=== PATIENT | male | born 1955 | race Caucasian/White ===

== ENCOUNTER 2017-06-09 05:46 | Day surgery (SDC) | payer OTHER ==
[~2017-06-09] VITALS: Ht 180.3 cm; Wt 94.3 kg
[2017-06-09] VITALS (12 sets, daily range): BP systolic 117–158; BP diastolic 61–97; PULSE 52–84; RESP 12–16; O2SAT 91–99
[~2017-06-09 05:46] MED LIST: ASPI-973 PO; CINN500C14 PO; CeFAZolin Inj 2 GM in IV Premix 1 EACH IV ONE; GLUC-120 PO; LEVO100T6 PO; MULTIV PO; SIMV40TA5 PO; testosterone
[2017-06-09] MEDS ORDERED: Propofol 10,000 mCg/mL 20 mL Inj ONE (05:47)
[2017-06-09] MEDS ORDERED: Rocuronium 10 mg/mL 5 mL Inj ONE (05:47)
[2017-06-09] MEDS ORDERED: fentaNYL-PF 50 mCg/mL 2 mL Inj ONE (05:47)
[2017-06-09] MEDS ORDERED: Ondansetron 2 mg/mL 2 mL Inj ONE (05:47)
[2017-06-09] MEDS ORDERED: Dexamethasone 4 mg/mL Inj ONE (05:47)
[2017-06-09] MEDS ORDERED: Succinylcholine Chloride 20 mg/mL 5 mL Inj ONE (05:47)
[2017-06-09] MEDS: Lactated Ringer's 1,000 ML IV SCH ×2 (06:00→07:33)
[2017-06-09] MEDS ORDERED: TEST100V4 IM (06:03)
[2017-06-09] MEDS ORDERED: CeFAZolin 2 Gm/50 mL D5W Duplex Bag IV ONE (06:04)
--- NOTE | 2017-06-09 06:37 | PCM.HPANE ---
Patient Data Surgeon Admitting Provider: Attending Provider:Ramiro Kline DO Primary Care Physician:Aleshia Dawn MD Other Provider:Adam Almodovar Anesthesia Reason for Visit Right Shoulder Rotator Cuff Tear Ht/WT & BMI Height (Feet): 5 Height (Inches): 11 Weight (Kilograms): 94.3 Body Mass Index 29.00 Allergies Uncoded Allergies: No Known Allergies (Allergy, Mild, 02/28/04) Past Anesthesia History Anesthesia History: Denies:: Abnormal Airway, Anesthesia Reactions, Difficult Intubation, Fam Anesthesia Reaction, Fam Malignant Hypertherm, Malignant Hyperthermia Diabetes History Hx Diabetes?: No MRSA MRSA: No Medications Blood Thinner: Aspirin Last Dose Blood Thinner: May 27, 2017 Home Meds Incl Beta Rayshawn: No Reported Medications Testosterone Cypionate 100 Mg/1 Ml Vial Im Bimonthly #10 06/09/17 [multiv] No Conflict Check1 Tab PO DAILY 06/03/17 Gluc 2Kcl/Chondr/Randy Hy/Hy AC (Glucosamine & Chondroitin Cap)1 Each Capsule1 Each PO DAILY 06/03/17 Cinnamon Bark (Cinnamon)500 Mg [id number] Mg PO DAILY 06/03/17 Simvastatin 40 Mg [id number] Mg PO HS 30 Days Ref 0 06/03/17 Levothyroxine 100 Mcg [id number] Mcg PO DAILY For Thyroid Replacement Ref 0 06/03/17 Aspirin 81 Mg [id number] Mg PO DAILY Ref 0 06/03/17 Discontinued Reported Medications [testosterone] No Conflict Check 06/03/17 History History of ENT Problems?: No HEENT History: Positive for:: Glaucoma (border line ) Denies:: Abnormal Airway Cataracts Difficult Intubation Dysphagia Hearing Problem Sinus Problem TMJ Denture Type: None Teeth Condition: Within Normal Limits Missing Teeth Hx of Heart Problems?: No Cardiovascular History: Denies:: Abdominal Aortic Aneurism Atrial Fibrillation Cardiac Surgery Chest Pain Congestive Heart Failure Coronary Artery Disease Edema Heart Murmur Hypertension Irregular Heartbeat Peripheral Vascular Rheumatic Fever Thrombophlebitis Valvular Heart Disease Hx of Respiratory Problem?: No Respiratory History: Denies:: Use of C-PAP Machine Hx Neurologic Problems?: No Neurological History: Denies:: Alzheimer's Disease CVA Dementia Dizziness Headaches Multiple Sclerosis Parkinson's Disease Seizures TIA Hx of GI Problems?: No Hx of Problems?: No Male Hx: Denies:: Prostate Problems Scrotal Mass Testicular Surgery Skin History: Denies:: History Skin Disorders? Hx Musculoskeletal Problems?: No Musculoskeletal History: Positive for:: Osteoarthritis Denies:: Back Injury Degenerative Joint Fibromyalgia Joint Replacement Musculoskeletal Trauma Myasthenia Gravis Rheumatoid Arthritis Systemic Lupus Hx of Psycho/Social Problems?: No Psycho Social History: Denies:: Anxiety Bipolar Disorder Hx Depression Hx Surgeries?: Yes Other History: Positive for:: Thyroid Disease (Hypothyroid - Levothyroxine) Denies:: Cancer Endocrine Disease History Blood Transfusions: Positive for:: Accept Blood Products? Denies:: Blood Transfusions Hx Diabetes: No Hx Alcohol Use: Yes (occassionally thursday)Hx Substance Use: No Stop/Bang S-Snoring: Do You Snore Loudly: No T-Tired: feel tired, fatigued: No O-Obsered: Observed not breath: No P-Blood Pressure: treated: No B- Body Mass Index > 35 kg/m2: No A- Age over 50: Yes N- Neck Large Circumference: No G- Gender Male: Yes BRYAN Total Score: 2 BRYAN Risk Assessment: Low Risk, <3 Yes Risk Assessment Category Category 1A: Patient has history of documented sleep apnea, and HAS NOT received any narcotic, sedative or anesthesia administration during this stay. Category 1B: Patient has history of documented sleep apnea, and HAS received any narcotic , sedative or anesthesia administration during this stay Category 2: Patient has SUSPECTED Obstructive Sleep Apnea, and HAS received any narcotic , sedative or anesthesia administration during this stay. Category 3: Patient has SUSPECTED Obstructive Sleep Apnea and HAS NOT received narcotic, sedative or anesthesia administration during this stay. Category 4: Outpatient in Procedural Areas with known sleep apnea or who screen positive for High Risk via the STOP/BANG questionnaire. Exam Exam Vital Signs Vital Signs Date Time Temp Pulse Resp B/P Pulse Ox O2 Delivery O2 Flow Rate FiO2 06/09/17 06:10 36.0 52 16 147/85 95 Room Air General Appearance: Alert, Oriented X3, Cooperative, No Acute Distress HEENT/AIRWAY: MP 2 Lungs: Clear to Auscultation, Normal Air Movement Heart: Exam Unremarkable, Regular Rate/Rhythm, No Murmurs/Rubs/Gallops Meds/Labs/Diagnostics Admission Meds Current Medications Lactated Ringer's (Lr) 1,000 ml @ 120 mls/hr Q8H20M IV Last administered on t 06:00; Start 06/09/17 at 05:00; Stop 06/09/17 at 13:19 Plan Impression Patient chart reviewed, patient interviewed and anesthestic plan with risks, benefits, and alternatives discussed, and informed consent obtained. NPO per Anesth. Guidelines: Yes ASA Physical Status: ASA2 Mod Systemic Disease Anesthetic Plan: GA, Regional Block Bene/Risks/Altern/Consents: Yes HP Complete Prior to Induction: Yes Hussein Parekh MD Jun 09, 2017 06:37
[2017-06-09] MEDS ORDERED: Lidocaine 1%-Epi 1:100,000 20 mL Inj INFILTRATE ONE (07:35)
[2017-06-09] MEDS ORDERED: Atropine 0.4 mg/mL Inj IVPUSH PRN (08:20)
[2017-06-09] MEDS ORDERED: Phenylephrine 10,000 mCg/mL Inj IVPUSH PRN (08:20)
[2017-06-09] MEDS ORDERED: MetoCLOpramide 5 mg/mL 2 mL Inj IVPUSH PRN (08:20)
[2017-06-09] MEDS ORDERED: EPHEDrine Sulfate 50 mg/mL Inj IVPUSH PRN (08:20)
[2017-06-09] MEDS ORDERED: HYDROmorphone 1 mg/mL Inj IVPUSH PRN (08:20)
[2017-06-09] MEDS ORDERED: fentaNYL-PF 50 mCg/mL 2 mL Inj IVPUSH PRN (08:20)
[2017-06-09] MEDS ORDERED: Dexamethasone 4 mg/mL Inj IVPUSH PRN (08:20)
[2017-06-09] MEDS ORDERED: Ondansetron 2 mg/mL 2 mL Inj IVPUSH PRN (08:20)
[2017-06-09] MEDS ORDERED: Labetalol 5 mg/mL 4 mL Inj IV PRN (08:20)
[2017-06-09] MEDS ORDERED: Lactated Ringer's 500 ML IV PRN (08:20)
[2017-06-09] MEDS ORDERED: Lactated Ringer's 1,000 ML IV SCH (08:20)
[2017-06-09] MEDS ORDERED: Ropivacaine-PF 0.5% 30 mL Inj INFILTRATE ONE (10:21)
[2017-06-09] MEDS ORDERED: oxyCODONE-Acetamin 5-325 mg Tablet PO PRN (10:50)
[2017-06-09] MEDS ORDERED: hydrOXYzine Pamoate 25 mg Capsule PO PRN (10:50)
--- NOTE | 2017-06-09 11:42 | OP ---
[address] [address] OPERATIVE REPORT PATIENT: ALIS SMITH : 1955 MR#: [id number] ADMIT: 06/09/2017 JOB ID: [id number] DATE OF SURGERY: 06/09/2017 PREOPERATIVE DIAGNOSIS(ES): Right shoulder rotator cuff tear with impingement and acromioclavicular joint arthritis. POSTOPERATIVE DIAGNOSIS(ES): Right shoulder rotator cuff tear with impingement and acromioclavicular joint arthritis with long head biceps tear. PROCEDURE: Right shoulder video arthroscopy with subacromial decompression and arthroscopic rotator cuff repair, arthroscopic distal clavicle resection and subpectoral biceps tenodesis. SURGEON: Alis Kline D.O. LAWYER CRIMINAL: Yajaira Morocho PA-C INDICATIONS: The patient is a 61-year-old male who was playing with his children and grandchildren playing softball and dove into [employer] and sustained a rotator cuff injury March 28, 2017. He was unable to lift the arm over his head after the injury. We discussed treatment options for this and had an MRI performed which demonstrated a complete rotator cuff tear with retraction and he wished to proceed with a shoulder arthroscopy with rotator cuff repair. We discussed the risks, benefits, and possible complications of surgery including, but not limited to injury to nerves and vessels, infection, bleeding, incomplete relief of symptoms, stiffness, need for additional procedures. The patient had good understanding. All questions were answered and he wished to proceed. PROCEDURE IN DETAIL: The patient was brought to the operating room. He was given a preoperative antibiotic and interscalene block as well as general anesthetic. Placed into the beach chair position. The right shoulder was sterilely prepped and draped. An incision was made over the posterolateral corner of the shoulder and the blunt trocar was introduced into the glenohumeral joint. Inspection was undertaken. He was found to be free of any significant articular damage on the humeral head or glenohumeral joint. He had a partial thickness 50% biceps tear and an anterior portal was established and the biceps was released off of the superior labrum. The labrum was debrided. He was also noted to have a full thickness, full width rotator cuff tear. The scope was then removed and placed in the subacromial space, and a subacromial decompression was undertaken, removing inferior bone osteophytes from the undersurface of the acromion, removed about 3-4 mm of bone. The rotator cuff was debrided and the footprint was cleared of soft tissue to effect a repair. I elected to do a dual row repair as the patient seemed to have good tissue and good mobility in the tendon. The first row two Arthrex anchors were placed at the articular margin with fiber tapes loaded after these anchors were passed. The sutures were passed through the tendon starting anteriorly working posteriorly. The fiber tapes were then passed out and brought up through the anterior portal and then the lateral row was created with one tape from the anterior anchor, one tape from the posterior anchor bringing these to a posterolateral metal-tipped anchor which was tensioned and impacted into position, screwed and then cut and an anterolateral anchor which similarly had one limb from each of the anterior and posterior of the initial anchors was pulled tight and secured to the tuberosity yielding excellent fixation of the rotator cuff. There was some slight gapping at the anterior most aspect, and the additional free suture limb from the push lock anchor was used with an [employer] needle Passer to tie a simple stitch in the anteriormost portion of the cuff. These yielded excellent fixation and attention was then directed towards the distal clavicle. The distal clavicle was co-planed and then the distal clavicle was removed using a bur, removed about 8 mm of bone for a 1 cm gap between the distal clavicle and the acromion. Care was taken to ensure that this was performed in its entirety anterior posterior, superficial to deep. The arthroscopic portion was then completed and an incision was made over the bicipital groove and dissection was carefully carried through the subcutaneous tissue. The fascia was incised and a Hohmann retractor was placed laterally. The biceps tendon was herniated out through the wound and the soft tissue was cleared off of the inferior portion of the bicipital groove. A 4-5 drill hole was then made proximally and two 2-0 drill holes were made distally. The biceps tendon was cut at the musculotendinous junction and then whipstitched with FiberWire suture. Then using an IDEAL suture shuttle, the suture was passed so that the tendon entered the 4.5 drill hole and the suture limbs exited the 2-0 drill holes. This was then passed back through the tendon and tied onto itself yielding excellent fixation of the tendon in the bicipital groove. The wound was then irrigated and closed with 0 Vicryl to repair the fascia and 2-0 to close the subcu. The skin was closed with a running subcuticular 4-0 Monocryl suture. Sterile dressings were applied. The patient tolerated the procedure well. A corporate legal assistant was required for the successful completion of this procedure. Blood loss was 10 cc. POSTOPERATIVE PROTOCOL: Will have the patient maintain his arm sling for six weeks and then followup with me and begin physical therapy at about that time. He was given a prescription for Percocet 5/325 for pain.
--- NOTE | 2017-06-09 14:07 | PCM.ANEP1 ---
Post Anesthesia PACU Phase 1 Assessment Vital Signs Vital Signs Date Time Temp Pulse Resp B/P Pulse Ox O2 Delivery O2 Flow Rate FiO2 06/09/17 12:45 36.5 76 16 153/82 94 Room Air 06/09/17 11:40 36.5 80 15 139/84 95 Nasal Cannula 2 06/09/17 11:35 78 12 136/88 95 Nasal Cannula 3 06/09/17 11:30 83 13 156/83 94 Nasal Cannula 3 06/09/17 11:20 36.1 84 12 140/87 94 Nasal Cannula 3 06/09/17 11:15 83 13 140/97 91 Room Air 06/09/17 11:10 83 13 128/70 99 Simple Mask 8 06/09/17 11:05 78 13 146/75 99 Simple Mask 8 06/09/17 11:00 77 16 158/77 97 Simple Mask 8 06/09/17 10:55 77 12 117/61 96 Simple Mask 8 06/09/17 10:50 35.8 78 12 155/72 99 Simple Mask 8 06/09/17 06:10 36.0 52 16 147/85 95 Room Air Anesthetic Administered: GA Level of Alertness: Awake, talking DHILLON's with Equal Strength: Yes Pain: No Nausea or Vomiting: No CV Function & Hydration Stable: No Airway Device: Oxygen Delivery: Simple Mask Lungs: Clear to Auscultation, Normal Air Movement PACU Phase 2 Assessment Complications: No Follow up Care: No Patient Instructions Provided: N/A Hussein Parekh MD Jun 09, 2017 14:07
== END 2017-06-09 23:59 | disposition home or self-care (01) ==
LOC: SAS 05:46
PROVIDERS: ATTEND Orthopaedic Surgery
PROC: 0LS14ZZ Reposition Right Shoulder Tendon, Percutaneous Endoscopic Approach (ICD-10-PCS; 2017-06-09)
PROC: 0RNJ4ZZ Release Right Shoulder Joint, Percutaneous Endoscopic Approach (ICD-10-PCS; 2017-06-09)
PROC: 0PB94ZZ Excision of Right Clavicle, Percutaneous Endoscopic Approach (ICD-10-PCS; 2017-06-09)
PROC: 0LS30ZZ Reposition Right Upper Arm Tendon, Open Approach (ICD-10-PCS; 2017-06-09)
PROC: 0LM14ZZ Reattachment of Right Shoulder Tendon, Percutaneous Endoscopic Approach (ICD-10-PCS; principal; 2017-06-09 07:30)
DX: S46.011A Strain of muscle(s) and tendon(s) of the rotator cuff of right shoulder, initial encounter (principal); S46.111A Strain of muscle, fascia and tendon of long head of biceps, right arm, initial encounter; M75.41 Impingement syndrome of right shoulder; M19.011 Primary osteoarthritis, right shoulder; W01.0XXA Fall on same level from slipping, tripping and stumbling without subsequent striking against object, initial encounter; E03.9 Hypothyroidism, unspecified; R73.03 Prediabetes; E78.5 Hyperlipidemia, unspecified
CPT/HCPCS: 23430; 29824; 29826; 29827; 76942; C1713; J0330; J0690; J1100; J1885; J2250; J2405; J2795; J3010; J7120